=== PATIENT | male | born 2000 | race Caucasian/White ===

== ENCOUNTER 2021-05-04 03:23 | Emergency (ER) | payer BC ==
[~2021-05-04] VITALS: Ht 182.9 cm; Wt 74.8 kg
[2021-05-04 03:54] VITALS: BP_SYST 132
[2021-05-04] MEDS ORDERED: IBUP-1971 PO (05:47)
[2021-05-04 06:06] VITALS: BP_SYST 133
== END 2021-05-04 06:03 | disposition home or self-care (01) ==
LOC: SED 03:23
DX: S92.354A Nondisplaced fracture of fifth metatarsal bone, right foot, initial encounter for closed fracture (principal); X50.0XXA Overexertion from strenuous movement or load, initial encounter; Y93.01 Activity, walking, marching and hiking; Y92.89 Other specified places as the place of occurrence of the external cause; Y99.8 Other external cause status
CPT/HCPCS: 99284